=== PATIENT | female | born 1950 | race Caucasian/White ===

== ENCOUNTER 2021-04-08 12:30 | Inpatient (IN) | payer MEDICARE, OTHER, BC ==
[~2021-04-08] VITALS: Ht 154.9 cm; Wt 70.0 kg
[2021-04-08] MEDS ORDERED: NS 1,000 ML IV ONE ×2 (14:10→15:20)
[2021-04-08 14:37] LABS: BASO % 0.2 % (0.0-1.0); EOS % 0.3 % (0.0-3.0); HEMATOCRIT 31.5 % (36.0-47.0); HEMOGLOBIN 9.6 g/dl (12.0-15.5); LYMPH # 0.9 10^3/uL (1.5-5.0); LYMPH % 6.2 % (24.0-44.0); MEAN CORPUSCULAR HEMOGLOBIN 24.5 pg (27.0-33.0); MEAN CORPUSCULAR HGB CONC 30.5 g/dl (32.0-36.5); MEAN CORPUSCULAR VOLUME 80.4 fl (80.0-96.0); MONO # 1.7 10^3/uL (0.0-0.8); NEUTROPHILS # 11.3 10^3/uL (1.5-8.5); NEUTROPHILS % 80.7 % (36.0-66.0); PLATELET COUNT, AUTOMATED 371 10^3/uL (150-450); RED BLOOD COUNT 3.92 10^6/uL (4.00-5.40)
[2021-04-08 15:11] LABS: ERYTHROCYTE SEDIMENTATION RATE 79 mm/hr (0-30)
[2021-04-08 15:33] LABS: ALBUMIN 2.8 GM/DL (3.2-5.2); ALT/SGPT 27 U/L (12-78); BILIRUBIN,TOTAL 1.2 MG/DL (0.2-1.0); BLOOD UREA NITROGEN 66 MG/DL (7-18); C REACTIVE PROTEIN QUANTITATIV 6.92 MG/DL (0.00-0.30); CALCIUM LEVEL 10.2 MG/DL (8.8-10.2); CARBON DIOXIDE LEVEL 14 MEQ/L (21-32); CHLORIDE LEVEL 99 MEQ/L (98-107); CREATININE FOR GFR 5.27 MG/DL (0.55-1.30); GLOMERULAR FILTRATION RATE 8.5 (>39); GLUCOSE, FASTING 221 MG/DL (70-100); LIPASE 825 U/L (73-393); POTASSIUM SERUM 6.8 MEQ/L (3.5-5.1); SODIUM LEVEL 129 MEQ/L (136-145); TOTAL PROTEIN 6.9 GM/DL (6.4-8.2)
[2021-04-08] MEDS ORDERED: PIPERACILLIN/TAZOBACTAM SOD 4.5 GM in D5W MINI-BAG PLUS 50 ML IV ONE (16:05)
[2021-04-08 16:17] LABS: CK-MB VALUE MASS 29.2 NG/ML (<3.6); CPK CREATINE PHOSPHOKINASE 108 U/L (26-192); MB/CK RELATIVE INDEX 27.04 (< OR =4); NT-PRO BNP 1021 PG/ML (<125); TROPONIN I < 0.02 NG/ML (< 0.10)
[2021-04-08 16:25] LABS: AMYLASE 71 U/L (25-115)
[2021-04-08] MEDS ORDERED: ONDANSETRON 4MG/2ML VIAL IV ONE ×2 (16:30→18:00)
[2021-04-08 16:36] LABS: ABG BASE EXCESS -15.8 (-2.0-2.0); ABG HCO3 9.8 MEQ/L (22.0-26.0)
[2021-04-08 16:37] LABS: ABG O2 SATURATION 96.7 % (95.0-99.0); ABG PARTIAL PRESSURE CO2 23.4 mmHg (35.0-45.0); ABG PARTIAL PRESSURE O2 100.5 mmHg (75.0-100.0); ABG STANDARD HCO3 12.2 MEQ/L (22.0-26.0); ABG TOTAL CO2 10.6 MEQ/L (23.0-31.0)
[2021-04-08 16:39] LABS: ABG pH (ARTERIAL) 7.242 UNITS (7.350-7.450)
--- NOTE | 2021-04-08 16:51 | REP ---
INDICATION: abdominal pain/hyperactive bowel. COMPARISON: None. TECHNIQUE: Imaging protocol: Computed tomography of the abdomen and pelvis without IV contrast. Contiguous 3 mm thick axial projection images were obtained through the abdomen and pelvis. 2D sagittal and coronal reconstructions were performed. Radiation optimization: All CT scans at this facility use at least one of these dose optimization techniques: automated exposure control; mA and/or kV adjustment per patient size (includes targeted exams where dose is matched to clinical indication); or iterative reconstruction. FINDINGS: Heart and lung bases: There is linear scarring in the inferior segment of the lingula and the anteromedial basal segment of the lower lobe of the left lung. There are no pleural effusions. The heart size is normal. There is no pericardial effusion. There is calcific vascular disease of the thoracic aorta and coronary arteries. Liver: The liver has a lobulated margin, suggestive of cirrhosis. The hepatic parenchyma has a heterogeneous density which may indicate regenerating nodules however multifocal hepatocellular carcinoma or metastatic disease is not excluded. Gallbladder: There are multiple small gallstones. Spleen: Normal unenhanced appearance. Pancreas: Normal unenhanced appearance. Adrenal glands: There is thickening of the limbs of the adrenal glands consistent with hyperplasia. Kidneys/bladder: There is a 6 mm stone in the lower pole calyx of the right kidney. There is a 3 mm stone in the lower pole calyx of the right kidney. The urinary bladder has a normal unenhanced appearance. Pelvic structures: The uterus is surgically absent. The ovaries are not identified. There is free fluid in the pelvis. There is bilateral common internal and external iliac lymphadenopathy. There is no inguinal lymphadenopathy. GI tract: There are scattered colonic diverticuli without evidence of acute inflammation. The appendix is not demonstrated. Abdominal wall and mesentery: There is retrocrural, upper abdominal, retroperitoneal and mesenteric lymphadenopathy. There is fluid in the right perihepatic space and both pericolic gutters. There is thickening of the anterior and posterior pararenal fascia and the lateral conal fascia, bilaterally. Abdominal aorta and vascular structures: There is calcific vascular disease of the abdominal aorta. Bony structures: There is mild multilevel degenerative disc disease of the lower thoracic and lumbar spine. There are large Schmorl's nodes in the inferior endplate of T12 and the superior endplate of L5. The SI joints and hips are unremarkable. IMPRESSION: 1. There is extensive intra and extra abdominal lymphadenopathy consistent with lymphoma. 2. There is moderate ascites. 3. The liver has a lobulated margin suggesting cirrhosis. There is heterogeneous density of the liver which may indicate regenerating nodules but primary carcinoma or metastatic disease cannot be excluded. 4. Cholelithiasis. 5. Other findings as noted. <Electronically signed by Elmer Carpenter > 04/08/21 1974
[2021-04-08 16:56] LABS: INR 2.29; PROTHROMBIN TIME 25.6 SECONDS (12.7-14.5)
[2021-04-08 16:57] LABS: PARTIAL THROMBOPLASTIN TIME 65.1 SECONDS (25.9-37.0)
[2021-04-08] MEDS ORDERED: DEXTROSE 50% 50 ML SYRINGE IV STA (17:11)
[2021-04-08] MEDS ORDERED: HumuLIN R (REGULAR) INSULIN (NovoLIN R) **100U/ML** PER UNIT IV STA (17:11)
[2021-04-08] MEDS ORDERED: ALBUTEROL SULFATE 2.5 MG/0.5 ML INH NEB SOLN NEB STA (17:11)
[2021-04-08] MEDS ORDERED: SOD POLYSTYRENE SULFONATE SUSP 15 GM/60 ML UD PO STA (17:11)
[2021-04-08] MEDS ORDERED: CALCIUM GLUCONATE 1,000 MG in D5W MINI-BAG PLUS 100 ML IV ONE (17:15)
[2021-04-08] MEDS ORDERED: FURO40TA2 PO (17:33)
[2021-04-08] MEDS ORDERED: MYCO500T PO (17:33)
[2021-04-08] MEDS ORDERED: LEVE500T88 PO (17:33)
[2021-04-08] MEDS ORDERED: LOSA25TA14 PO (17:33)
[2021-04-08] MEDS ORDERED: GLIM1TAB4 PO (17:33)
[2021-04-08] MEDS ORDERED: ATOR80TA59 PO (17:33)
[2021-04-08] MEDS ORDERED: METO1TAB7 PO (17:33)
[2021-04-08] MEDS ORDERED: LANTINJ4 SC (17:33)
[2021-04-08] MEDS ORDERED: DULA3PEN SC (17:33)
[2021-04-08] MEDS ORDERED: OMEP-218 PO (17:33)
[2021-04-08] MEDS ORDERED: METF10004 PO (17:33)
[2021-04-08] MEDS ORDERED: ESTR10TA VG (17:33)
--- NOTE | 2021-04-08 17:34 | ECGEPIP ---
[facility] - ED Test Date: 2021-04-08 Pat Name: NARDA HURTADO Department: Room: - Gender: Female Male Impersonator: CHARI : 1950 Requested By: DREA Hull PA-C Order Number: [id number] Reading MD: Yunior Valerio Measurements Intervals [place] Rate: 88 P: 67 LA: 154 QRS: -18 QRSD: 66 T: 61 QT: 344 QTc: 416 Interpretive Statements Normal sinus rhythm Low voltage QRS throughout Possible Inferior infarct , age undetermined Nonspecific T wave abnormality Comparison tracing not on file Electronically Signed on 04-08-2021 17:34:18 EDT by Yunior Valerio
[2021-04-08 18:01] LABS: RSV AMPLIFICATION NEGATIVE (NEGATIVE)
--- NOTE | 2021-04-08 18:10 | REP ---
INDICATION: hx CHF. COMPARISON: None. TECHNIQUE: Upright PA and lateral chest images were obtained. FINDINGS: There are surgical clips within the lingula consistent with biopsy. The lungs are otherwise clear. There are no pleural effusions. The heart size is normal. There is no calcific vascular disease of the thoracic aorta. The upper abdominal bowel gas pattern is normal. There is calcific vascular disease of the left carotid bifurcation. There are no significant bony abnormalities. IMPRESSION: 1. No evidence of acute cardiopulmonary pathology. 2. Other findings as noted. <Electronically signed by Elmer Carpenter > 04/08/21 [id number]
[2021-04-08] MEDS ORDERED: SLOW142T5 PO (18:34)
[2021-04-08] MEDS ORDERED: ASPI81CH33 PO (18:49)
[2021-04-08] MEDS ORDERED: GLUCAGON INJ 1MG VIAL SC PRN (18:50)
[2021-04-08] MEDS ORDERED: ACETAMINOPHEN TAB 650MG DOSE (2X325MG) PO PRN (18:50)
[2021-04-08] MEDS ORDERED: NS 1,000 ML IV SCH (18:50)
[2021-04-08] MEDS ORDERED: GLUCOSE 4GM CHEW TABLET PO PRN (18:50)
[2021-04-08] MEDS ORDERED: DEXTROSE 50% 50 ML SYRINGE IV PRN (18:50)
[2021-04-08] MEDS ORDERED: HOME MED LIST COMPLETE! XX SCH (18:55)
--- NOTE | 2021-04-08 19:29 | REP ---
INDICATION: elevated liver enzymes, HERNANDEZ, hyperkalemia. COMPARISON: None. TECHNIQUE: Multiple ultrasound images of the abdomen were obtained in multiple projections. FINDINGS: The liver is enlarged, measuring 20.2 cm in vertical dimension in the midclavicular line and is coarsened in echotexture and has a lobulated margin. There is mild splenomegaly with the spleen measuring 12.8 cm in pole to pole length. The gallbladder is contracted and contains stones and sludge. The right kidney measures 11.3 x 5.1 x 4.8 cm. There is a benign cortical cyst in the interpolar region of the right kidney. There is an 8 mm stone in a lower pole calyx of the right kidney. The left kidney measures 12.0 x 4.9 x 4.6 cm. There is a benign cortical cyst in the interpolar region of the left kidney. Limited imaging of the pancreas is unremarkable. There is calcified plaque in the abdominal aorta. IMPRESSION: 1. Cholelithiasis with chronic cholecystitis. 2. Hepatomegaly with a lobulated margin suggesting cirrhosis. 3. Benign cortical cysts in both kidneys. 4. Nonobstructing stone in the right kidney. 5. Calcific vascular disease of the abdominal aorta. <Electronically signed by Elmer Carpenter > 04/08/211924
--- NOTE | 2021-04-08 19:53 | HPEPDOC ---
[facility] Medical History & Physical Date of Admission Apr 08, 2021 Date of Service: Apr 08, 2021 Attending Physician: JOSEPHINE DANIEL MD History and Physical CHIEF COMPLAINT: Abdominal pain HISTORY OF PRESENT ILLNESS: 70 yo W with a history of remote bladder CA s/p resection x 2 after recurrence in 2019, hx of pericarditis x 2 s/p pericardial window so what started on cellcept? unclear if she carries a diagnosis of autoimmune disorder, HTN, HLD, IDDM, depression, active smoker, who developed abdominal and generalized weakness that began 3 weeks and progressive got worse. She feels weak, has subjective sweats without documented fevers, is mildly short of breath but no cough, congestion or rhinorrhea, has had poor PO, drinking mostly Pedialyte and has diarrhea but could not quantify for me, as well as 2 episodes of emesis. In the ED she is hemodynamically stable, afebrile, and studies were notable for WBC 14, hgb 9.6, platelets 371, Na 129, K 6.8, Cr 2.5, AST 94, ALT 27, Tbili 1.2, Dbili 1, alk phos 967m UA with sterile pyuria with TNTC WBCs and 46 RBCs with no bacteria or nitrites, ESR was 79, lipase 825, Ca 10, proBNP 1021, troponin <0.02. She had a CT A/P without contrast that revealed extensive intra and extraabdominal lymphadenopathy, moderate ascites, cirrhotic liver with either regenerative nodules vs. masses (either primary or metastatic) and non- obstructive kidney stones. The ED also ordered for a gallbladder US, renal US that were pending at the time of my evaluation. While in the ED, she was given 1.5L NS, calcium gluconate, insulin/dextrose and Kayexalate for hyperK, pip/tazo after UCx and BCx were drawn empirically. She is now getting admitted to [facility] for HyperK, HERNANDEZ, potential sepsis and newly found malignancy possibly lymphoma vs. not yet determined metastatic malignancy. PAST MEDICAL HISTORY: per HPI PAST SURGICAL HISTORY: Pericardial window Cystoscopy with bladder tumor removal Hysterectomy SOCIAL HISTORY: Current smoker Rare alcohol No illicit drug use FAMILY HISTORY: Father: at 84 from a cancer Mother: of old age at 102 ALLERGIES: Please see below. REVIEW OF SYSTEMS: 10 point ROS was completed and was negative EXCEPT for the elements noted in the HPI. HOME MEDICATIONS: Please see below. PHYSICAL EXAMINATION: VITAL SIGNS: see below GENERAL APPEARANCE: Ill appearing, NAD. HEENT: NCAT, EOMI, dry MM. NECK: I did not appreciate nestor lymphadenopathy in the supraclavicular nodes, submandibular or submental nodes CARDIOVASCULAR: RRR, systolic murmur LUNGS: CTAB, no wheezing or rales ABDOMEN: tender throughout but most tender in RUQ and RLQ. No rebound or involuntary guarding EXTREMITIES: WWP, no LE edema, NEUROLOGICAL: CN3-12 intact, clear speech, grossly nonfocal PSYCHIATRIC: AOx3 LABORATORY DATA and IMAGING: as noted above MICROBIOLOGY: Please see below. ASSESSMENT: 70 yo W with a history of remote bladder CA s/p resection x 2 after recurrence in 2019, hx of pericarditis x 2 s/p pericardial window so what started on cellcept? unclear if she carries a diagnosis of autoimmune disorder, HTN, HLD, IDDM, depression, active smoker, who developed abdominal and generalized weakness with V/D and poor PO who is now being admitted for HyperK, HERNANDEZ, potential sepsis and newly found malignancy possibly lymphoma vs. not yet determined metastatic malignancy. PLAN: HERNANDEZ: likely prerenal i/s/o V/D/poor PO while on ARB, cellcept, metformin, loop diuretic -Hold ARB, cellcept, metformin, loop diuretic -s/p 1.5L in the ED, continue NS at 100cc/hr -No obstructive pathology noted on imaging -nephrology consulted -check urine Na, Urine urea Hyperkalemia i/s/o HERNANDEZ with dehydration and taking mostly Pedialyte and no water per patient report -s/p 1.5L NS, calcium gluconate, insulin/dextrose and Kayexalate in the ED -NS at 100cc/hr -telemetry -will check Mag -nephrology consulted Hyponatremia: likely hypovolemic hyponatremia i/s/o dehydration -s/p 1.5L NS -continue NS at 100cc/hr -check urine Na and serum osmoles Extensive abdominal lymphadenopathy and potential liver masses? -Most likely malignancy possibly lymphoma vs. not yet determined metastatic malignancy, called Dr. Patrick, will see her tomorrow, to consult IR for biopsy -will order CT chest -will likely require more imaging that may include brain, will await discussion with oncology Leukocytosis and reported subjective fevers: c/f sepsis -Continue empiric zosyn -f/u UCx, BCx -check CT chest -CT A/P as above -f/u GI panel -respiratory panel was negative Elevated lipase w/ possible pancreatitis: -with extensive disease noted in abdomen, will start empiric zosyn and fluids while pending onc workup Transaminitis: likely 2/2 infiltration of disease with imaging showing possible masses vs. cirrhosis -monitor daily CMP HTN: -will continue metop, hold ARB HLD: -continue lipitor IDDM: -Consistent carb diet -FSBG AC/HS -SSI AC/HS -hypoglycemia protocol -continue home long acting insulin DVT ppx: lovenox Vital Signs Vital Signs Date Time Temp Pulse Resp B/P (MAP) Pulse Ox O2 Delivery O2 Flow Rate FiO2 04/08/21 18:30 99 18 133/55 (81) 100 Room Air 04/08/21 12:30 97.7 Laboratory Data Labs 24H Laboratory Tests 2 04/08/21 14:07: Immature Granulocyte % (Auto) 0.6, Neutrophils (%) (Auto) 80.7H, Lymphocytes (%) (Auto) 6.2L, Monocytes (%) (Auto) 12.0H, Eosinophils (%) (Auto) 0.3, Basophils (%) (Auto) 0.2, Neutrophils # (Auto) 11.3H, Lymphocytes # (Auto) 0.9L, Monocytes # (Auto) 1.7H, Eosinophils # (Auto) 0.0, Basophils # (Auto) 0.0, Nucleated Red Blood Cells % (auto) 0.0, Erythrocyte Sedimentation Rate 79H, Anion Gap 16, Glomerular Filtration Rate 8.5L, Lactic Acid Level 2.5*H, Calcium Level 10.2, Total Bilirubin 1.2H, Direct Bilirubin 1.0H, Aspartate Amino Transf (AST/SGOT) 94H, Alanine Aminotransferase (ALT/SGPT) 27, Alkaline Phosphatase 967H, Total Creatine Kinase 108, Creatine Kinase MB 29.2H, Creatine Kinase MB Relative Index 27.04H, Troponin I < 0.02, C-Reactive Protein, Quantitative 6.92H, RK-Fko-O-Type Natriuretic Peptide 1021H, Total Protein 6.9, Albumin 2.8L, Albumin/Globulin Ratio 0.7L, Amylase Level 71, Lipase 825H 04/08/21 14:43: POC Glucose (Misc Panel) 223H, POC Sodium (Misc Panel) 130L, POC Potassium (Misc Panel) 6.6*H, POC Chloride (Misc Panel) 104, POC Total CO2 (Misc Panel) 15.0L, POC Blood Urea Nitrogen (Misc Panel 61H, POC Ionized Calcium (Misc Panel) 5.4H, POC Creatinine (Misc Panel) 5.8H, POC Hematocrit (Misc Panel) 39.0 04/08/21 16:12: Urine Color YELLOW, Urine Appearance CLOUDYH, Urine pH 5.0, Urine Specific [place] 1.011, Urine Protein 3+H, Urine Glucose (UA) NEGATIVE, Urine Ketones NEGATIVE, Urine Blood 2+H, Urine Nitrite NEGATIVE, Urine Bilirubin NEGATIVE, Urine Urobilinogen 0.2, Urine Leukocyte Esterase 2+H, Urine WBC (Auto) TNTCH, Urine RBC (Auto) 46H, Urine Hyaline Casts (Auto) 14, Urine Bacteria (Auto) NEGA TIVE, Urine Squamous Epithelial Cells 6, Urine Transitional Epithelial Cells 1, Urine Mucus (Auto) SMALL, Urine Sperm (Auto) 04/08/21 16:24: Blood Gas Bicarbonate Standard 12.2L, Arterial Blood pH 7.242*L, Arterial Blood Partial Pressure CO2 23.4L, Arterial Blood Partial Pressure O2 100.5H, Arterial Blood Total CO2 10.6L, Arterial Blood HCO3 9.8L, Arterial Blood Base Excess - 15.8L, Arterial Blood Oxygen Saturation 96.7 04/08/21 16:26: Prothrombin Time 25.6H, Prothromb Time International Ratio 2.29, Activated Partial Thromboplast Time 65.1H, Coronavirus (COVID-19)(PCR) NEGATIVE, Influenza Type A (RT-PCR) NEGATIVE, Influenza Type B (RT-PCR) NEGATIVE, Respiratory Syncytial Virus (PCR) NEGATIVE CBC/BMP Laboratory Tests 04/08/21 14:07 Microbiology Microbiology 04/08/21 Blood Culture, Received Pending 04/08/21 Gastrointestinal Tract Panel (PCR) - Final, Complete 04/08/21 Blood Culture, Received Pending 04/08/21 Urine Culture, Received Pending Home Medications Scheduled Aspirin (Aspirin) 81 Mg Tab.chew, 81 MG PO QHS Atorvastatin Calcium (Atorvastatin Calcium) 80 Mg Tablet, 80 MG PO QHS Dulaglutide (Trulicity) 3 Mg/0.5 Ml Pen.injctr, 3 MG SC 1XWK WEDNESDAY EVENING Ferrous Sulfate (Slow Fe) 142 Mg Tablet.er, 142 MG PO Q2D Furosemide (Furosemide) 40 Mg Tablet, 40 MG PO DAILY Glimepiride (Glimepiride) 1 Mg Tablet, 1 MG PO DAILY Insulin Glargine,Hum.rec.anlog (Lantus Solostar) 100 Unit/1 Ml Insuln.pen, 60 UNITS SC QHS Levetiracetam (Levetiracetam ER) 500 Mg Tab.er.24h, 500 MG PO BID Losartan Potassium (Losartan Potassium) 25 Mg Tablet, 25 MG PO QHS Metformin HCl (Metformin HCl) 1,000 Mg Tablet, 1,000 MG PO BID Metoprolol Succinate (Metoprolol Succinate) 50 Mg Tab.er.24h, 50 MG PO DAILY Mycophenolate Mofetil (Mycophenolate Mofetil) 500 Mg Tablet, 500 MG PO BID Omeprazole (Omeprazole) 20 Mg Capsule.dr, 20 MG PO DAILY Allergies Coded Allergies: No Known Allergies (Unverified , 04/08/21) A-FIB/CHADSVASC A-FIB History Current/History of A-Fib/PAF?: No Current PO Anticoag Therapy: No Age/Risk Factor Scoring CHADSVASC: CHADSVASC Response (Comments) Value Age Risk Factor Age 65-74 years old 1 Gender Risk Factor Female 1 Hx of CHF Yes 1 Hx of HTN Yes 1 Hx of Stroke/TIA/or VTE No 0 Hx of Diabetes Yes 1 Hx of Vascular Disease No 0 Total 5 Treatment Treatment ordered: NONE Reason Anticoagulant not given: Not indicated/[id number] JOSEPHINE DANIEL MD Apr 08, 2021 19:51
[2021-04-08 20:45] LABS: CALCIUM LEVEL 9.9 MG/DL (8.8-10.2); GLOMERULAR FILTRATION RATE 9.1 (>39); POTASSIUM SERUM 5.8 MEQ/L (3.5-5.1)
[2021-04-08] MEDS: HumaLOG INSULIN (NovoLOG) PER UNIT SC SCH (21:00)
[2021-04-08] MEDS: HEPARIN SOD (PORCINE) 5000UNITS/ML 1ML VIAL/SYRINGE SQ SCH (21:00)
[2021-04-08] MEDS ORDERED: ATORVASTATIN 20 MG TAB PO SCH (21:00)
--- NOTE | 2021-04-08 21:07 | REPVR ---
PROCEDURE INFORMATION: Exam: CT Chest Without Contrast; Diagnostic Exam date and time: 04/08/2021 7:46 PM Age: 70 years old Clinical indication: Other: Abdominal lymphadenopathy with metastatic disease TECHNIQUE: Imaging protocol: Diagnostic computed tomography of the chest without contrast. 3D rendering (Not supervised by radiologist): MIP and/or 3D reconstructed images were created by the technologist. Radiation optimization: All CT scans at this facility use at least one of these dose optimization techniques: automated exposure control; mA and/or kV adjustment per patient size (includes targeted exams where dose is matched to clinical indication); or iterative reconstruction. COMPARISON: CR Chest, 2 view PA, Lat 04/08/2021 4:14 PM FINDINGS: Thyroid: Enlarged right lobe of the thyroid gland with a complex nodule measuring 2.6 x 1.8 cm. Further evaluation with nonemergent ultrasound could be considered. Lungs: Mild parenchymal scarring lingular lobe. Lungs otherwise clear. Pleural spaces: Unremarkable. No pneumothorax. No pleural effusion. Heart: There is moderate atherosclerotic calcification of the coronary arteries. Aorta: There is mild atherosclerosis in the thoracic aorta. Lymph nodes: Unremarkable. No enlarged lymph nodes. Liver: Hepatomegaly with a heterogeneous texture in the liver, findings which may indicate heterogeneous fatty infiltration or infiltrative metastatic disease. Hepatomegaly. Adrenal glands: Left adrenal hyperplasia. Intraperitoneal space: Ascites. Bones/joints: The spine demonstrates mild degenerative changes. Soft tissues: Unremarkable. IMPRESSION: 1. Enlarged right lobe of the thyroid gland with a complex nodule measuring 2.6 x 1.8 cm. Further evaluation with nonemergent ultrasound could be considered. 2. No acute intrathoracic findings. COMMENTS: Consistent with the [employer]'s Incidental Findings Committee white paper (J Am Allan Radiol 2015): In patients aged 35 years and older with an incidental thyroid nodule equal to or greater than 1.[address], MRI or extrathyroidal US, further evaluation with dedicated thyroid US is recommended for patients with normal life expectancy and without comorbidities. For smaller nodules without suspicious features, no further evaluation or follow up is recommended. Electronically signed by: Miguel Thompson On 04/08/2021 21:06:21 PM
[2021-04-08 21:57] VITALS: BP 110/50
[2021-04-08] MEDS: ASPIRIN 81 MG CHEW TABLET PO SCH (22:21)
[2021-04-08] MEDS: levETIRAcetam **XR** 500 MG TABLET PO SCH (22:43)
[2021-04-08] MEDS: LEVEMIR (INSULIN DETEMIR) 1 UNITS/0.01ML SC SCH (22:43)
[2021-04-08] MEDS: PIPERACILLIN/TAZOBACTAM SOD 2.25 GM in D5W MINI-BAG PLUS 50 ML IV SCH (23:24)
[2021-04-09] VITALS (8 sets, daily range): BP systolic 92–119; BP diastolic 51–58
[2021-04-09 03:47] LABS: HEMOGLOBIN 7.9 g/dl (12.0-15.5); MEAN CORPUSCULAR HEMOGLOBIN 24.5 pg (27.0-33.0); MEAN CORPUSCULAR HGB CONC 30.4 g/dl (32.0-36.5); MEAN CORPUSCULAR VOLUME 80.5 fl (80.0-96.0); PLATELET COUNT, AUTOMATED 298 10^3/uL (150-450); RED BLOOD COUNT 3.23 10^6/uL (4.00-5.40); WHITE BLOOD COUNT 12.1 10^3/uL (4.0-10.0)
[2021-04-09 04:21] LABS: ALBUMIN 2.2 GM/DL (3.2-5.2); CALCIUM LEVEL 8.2 MG/DL (8.8-10.2); CREATININE FOR GFR 4.37 MG/DL (0.55-1.30); GLOMERULAR FILTRATION RATE 10.6 (>39); MAGNESIUM LEVEL 1.4 MG/DL (1.8-2.4); POTASSIUM SERUM 4.9 MEQ/L (3.5-5.1); TOTAL PROTEIN 5.4 GM/DL (6.4-8.2)
[2021-04-09] MEDS: PIPERACILLIN/TAZOBACTAM SOD 2.25 GM in D5W MINI-BAG PLUS 50 ML IV SCH ×3 (04:57→17:36)
[2021-04-09] MEDS: HumaLOG INSULIN (NovoLOG) PER UNIT SC SCH ×4 (07:30→20:08)
[2021-04-09] MEDS ORDERED: MAG SULF 1GM/100ML (MAG RUN) 1 GM in IV 1 EA IV ONE (08:00)
[2021-04-09] MEDS: HEPARIN SOD (PORCINE) 5000UNITS/ML 1ML VIAL/SYRINGE SQ SCH ×2 (08:34→20:09)
[2021-04-09] MEDS ORDERED: METOPROLOL SUCC (TopROL XL) 50MG **XL** TAB PO SCH (09:00)
[2021-04-09] MEDS ORDERED: ENOXAPARIN 40MG/0.4ML SYRINGE (J1650 PER 10MG) SC SCH (09:00)
[2021-04-09] MEDS ORDERED: OMEPRAZOLE 20 MG CAP PO SCH (09:00)
[2021-04-09] MEDS ORDERED: NS 1,000 ML IV SCH (09:05)
[2021-04-09 09:30] LABS: PERCENT SATURATION 6.4 % (13.2-45.0)
--- NOTE | 2021-04-09 10:50 | REP ---
INDICATION: large thyroid nodule. COMPARISON: CT chest 04/08/2021. TECHNIQUE: Real-time sonographic evaluation of thyroid performed. FINDINGS: Right lobe of the thyroid is larger than the left, right lobe measures 5.5 x 2.5 x 2.9 cm and left lobe 4.9 x 1.7 x 1.5 cm. In the right upper pole there is a 7 mm solid nodule. There is an adjacent nodule with a calcified rim measuring 8 mm. A cyst with thin septations in the mid aspect of the right lobe measures 1.4 x 0.9 x 1.6 cm. There is a complex solid nodule with small cystic components in the right lower pole 3.4 x 2.3 x 2.2 cm. In the left upper pole there is an 8 mm complex cyst and 7 mm complex cyst. In the left lower pole 2 solid nodules measure 1.2 cm and 0.8 cm. IMPRESSION: Multiple cystic and solid nodules as discussed in detail above. The dominant nodule in the right lower pole is mildly suspicious according to TI-RADS criteria and ultrasound-guided FNA is recommended. <Electronically signed by Jasiel Mckeon > 04/09/21 1047
[2021-04-09 11:17] LABS: HEPATITIS B SURFACE ANTIGEN NEGATIVE (NEGATIVE)
[2021-04-09 11:25] LABS: FOLATE 21.4 NG/ML (>5.4); PHOSPHORUS LEVEL 6.9 MG/DL (2.5-4.9); URIC ACID 14.6 MG/DL (2.6-6.0)
[2021-04-09 11:45] LABS: HEPATITIS B CORE ANTIBODY IGM NEGATIVE (NEGATIVE)
[2021-04-09 11:47] LABS: HEPATITIS A ANTIBODY IGM NEGATIVE (NEGATIVE)
--- NOTE | 2021-04-09 12:58 | CR.PDOC ---
General Date of Consultation: Apr 09, 2021 Attending Physician: ROBY PATRICK MD Consultation REASON FOR CONSULTATION/CHIEF COMPLAINT: Generalized lymphadenopathy HISTORY OF PRESENT ILLNESS: Ms. Quinn is in the hospital after developing abdominal and generalized weakness that began 3 weeks and progressive got worse. She feels weak, has subjective sweats, is mildly short of breath but no cough, congestion or rhinorrhea. She has significant pain. Diarrhea for past 3 weeks. No control on bowel movements. 8-[address] A/P without contrast that revealed extensive intra and extraabdominal lymphadenopathy, moderate ascites, cirrhotic liver with either regenerative nodules vs. masses (either primary or metastatic) and non-obstructive kidney stones. Remote bladder CA s/p resection x 2 after recurrence in 2019 and underwent RT. She was diagnosed 10 years previously. She was told it was not aggressive. The 2019 diagnoses was aggressive, as she was told. Dr. Trent treated her. She believes RT was once a week for 6-8 weeks. She follows up with him. She presented to the ER complaining her entire body has been hurting for 3 weeks. Previously she was okay. She sees Dr. Taylor yearly for arthritis. Her back was painful. She has been told that providers believe her pain is from her kidneys. She was able to preform her daily functions previous to this hospital stay. She stays mostly in bed and chair. She had pericarditis x 2 s/p pericardial window. She has been told she has an autoimmune disease. She takes cellcept. She had mammogram 10 years ago. Never had colonoscopy. PAST MEDICAL HISTORY: HTN, HLD, IDDM, depression PAST SURGICAL HISTORY: 1. Pericardial window 2. Cystoscopy with bladder tumor removal 3. Hysterectomy FAMILY HISTORY: Mother: passed at 84 from cancer SOCIAL HISTORY: Current Smoker - half pack daily, started at 17 Rare alcohol Denies illicit drug use She lives with her and has 1 grown child. 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 REVIEW OF SYSTEMS: CONSTITUTIONAL: Today she is very slow at speaking, weak and fatigued, short of breath HEENT: . CARDIOVASCULAR: . RESPIRATORY: . GENITOURINARY: . MUSCULOSKELETAL: generalized weakness, pain everywhere but mostly her back GASTROINTESTINAL: Diarrhea 8 times daily SKIN: . NEUROLOGICAL: . PSYCHIATRIC: . ENDOCRINE: . HEMATOLOGIC/LYMPHATIC: . ALLERGIC/IMMUNOLOGIC: . PHYSICAL EXAMINATION: GENERAL APPEARANCE: generalized weakness HEENT: . RESPIRATORY: short of breath CARDIOVASCULAR: . ABDOMEN: Very tender abdomen to the touch, enlarged liver, lymph nodes enlarged in abdomen only EXTREMITIES: . NEUROLOGICAL: . PSYCHIATRIC: . ASSESSMENT/PLAN: I consulted with Ms. Quinn today based on lymphadenopathy and a CT scan showing possible masses on liver. I explained she has enlarged lymph node enlargement in abdomen shown by CT. I explained the many reasons this could be. I would like her to have a liver biopsy done once she is stable. This will be done by Interventional Radiology. I will refer her to this once she is stable. Abdominal lymph nodes are enlarged. I do not have reason to believe she has a cirrhotic liver as during the physical exam her liver is enlarged and tender to the touch. Spleen was not noticeably enlarged. I am inclined to believe this could be metastatic disease to liver. I would like a liver biopsy to be done as soon as her general condition stabilizes. She understands this. I discussed this case with Dr. Breen. Patient uric acid level was found to be 15 and hyperkalemia. Patient is being treated with Kayexalate for hyperkalemia. Patient is likely having tumor lysis with rising BUN and creatinine. Patient needs to be transferred to tertiary care center for tumor lysis syndrome but for now no beds are available in other hospitals. She should be given rasburicase 6 mg IV x1. Her electrolytes and uric acid should be watched at least twice daily for close monitoring. Once patient stabilizes, at that time should be considered for further investigation with core needle biopsy of the liver or possible lymph node biopsy. Vital Signs/I&O Vital Signs Date Time Temp Pulse Resp B/P (MAP) Pulse Ox O2 Delivery O2 Flow Rate FiO2 04/09/21 08:00 96.8 95 20 92/54 (67) 97 Room Air I&O- Last 24 Hours up to 6 AM 04/09/21 06:00 Intake Total 2190 ml Output Total 450 ml Balance 1740 ml Laboratory Data Labs 24H Laboratory Tests 2 04/08/21 14:07: Immature Granulocyte % (Auto) 0.6, Neutrophils (%) (Auto) 80.7H, Lymphocytes (%) (Auto) 6.2L, Monocytes (%) (Auto) 12.0H, Eosinophils (%) (Auto) 0.3, Basophils (%) (Auto) 0.2, Neutrophils # (Auto) 11.3H, Lymphocytes # (Auto) 0.9L, Monocytes # (Auto) 1.7H, Eosinophils # (Auto) 0.0, Basophils # (Auto) 0.0, Nucleated Red Blood Cells % (auto) 0.0, Erythrocyte Sedimentation Rate 79H, Anion Gap 16, Glomerular Filtration Rate 8.5L, Lactic Acid Level 2.5*H, Calcium Level 10.2, Total Bilirubin 1.2H, Direct Bilirubin 1.0H, Aspartate Amino Transf (AST/SGOT) 94H, Alanine Aminotransferase (ALT/SGPT) 27, Alkaline Phosphatase 967H, Total Creatine Kinase 108, Creatine Kinase MB 29.2H, Creatine Kinase MB Relative Index 27.04H, Troponin I < 0.02, C-Reactive Protein, Quantitative 6.92H, GR-[id number]-Type Natriuretic Peptide 1021H, Total Protein 6.9, Albumin 2.8L, Albumin/Globulin Ratio 0.7L, Amylase Level 71, Lipase 825H, Hepatitis A IgM Antibody NEGATIVE, Hepatitis B Surface Antigen NEGATIVE, Hepatitis B Core IgM Antibody NEGATIVE, Hepatitis C Antibody Index 0.0 04/08/21 14:43: POC Glucose (Misc Panel) 223H, POC Sodium (Misc Panel) 130L, POC Potassium (Misc Panel) 6.6*H, POC Chloride (Misc Panel) 104, POC Total CO2 (Misc Panel) 15.0L, POC Blood Urea Nitrogen (Misc Panel 61H, POC Ionized Calcium (Misc Panel) 5.4H, POC Creatinine (Misc Panel) 5.8H, POC Hematocrit (Misc Panel) 39.0 04/08/21 16:12: Urine Color YELLOW, Urine Appearance CLOUDYH, Urine pH 5.0, Urine Specific [place] 1.011, Urine Protein 3+H, Urine Glucose (UA) NEGATIVE, Urine Ketones NEGATIVE, Urine Blood 2+H, Urine Nitrite NEGATIVE, Urine Bilirubin NEGATIVE, Urine Urobilinogen 0.2, Urine Leukocyte Esterase 2+H, Urine WBC (Auto) TNTCH, Urine RBC (Auto) 46H, Urine Hyaline Casts (Auto) 14, Urine Bacteria (Auto) NEGATIVE, Urine Squamous Epithelial Cells 6, Urine Transitional Epithelial Cells 1, Urine Mucus (Auto) SMALL, Urine Sperm (Auto) 04/08/21 16:24: Blood Gas Bicarbonate Standard 12.2L, Arterial Blood pH 7.242*L, Arterial Blood Partial Pressure CO2 23.4L, Arterial Blood Partial Pressure O2 100.5H, Arterial Blood Total CO2 10.6L, Arterial Blood HCO3 9.8L, Arterial Blood Base Excess - 15.8L, Arterial Blood Oxygen Saturation 96.7 04/08/21 16:26: Prothrombin Time 25.6H, Prothromb Time International Ratio 2.29, Activated Parti al Thromboplast Time 65.1H, Coronavirus (COVID-19)(PCR) NEGATIVE, Influenza Type A (RT-PCR) NEGATIVE, Influenza Type B (RT-PCR) NEGATIVE, Respiratory Syncytial Virus (PCR) NEGATIVE 04/08/21 20:17: Lactic Acid Followup at 4 Hours 4.3*H 04/08/21 20:18: Anion Gap 19H, Glomerular Filtration Rate 9.1L, Calcium Level 9.9, Procalcitonin 78.05 04/08/21 22:20: Bedside Glucose (Misc Panel) 178H 04/09/21 03:16: Nucleated Red Blood Cells % (auto) 0.0, Anion Gap 16, Glomerular Filtration Rate 10.6L, Calcium Level 8.2#L, Magnesium Level 1.4L, Total Bilirubin 1.0, Aspartate Amino Transf (AST/SGOT) 74H, Alanine Aminotransferase (ALT/SGPT) 21, Alkaline Phosphatase 820H, Total Protein 5.4#L, Albumin 2.2#L, Albumin/Globulin Ratio 0.7L 04/09/21 08:26: Reticulocyte # (auto) 41.5, Percent Reticulocyte Count 1.0, Reticulocyte Hemoglobin Equivalent 26.5, Lactic Acid Level 2.0, Uric Acid 14.6H, Phosphorus Level 6.9H, Iron Level 16L, Total Iron Binding Capacity 250, Transferrin % Saturation 6.4L, Ferritin 99, Vitamin B12 Level 362, Folate 21.4 04/09/21 11:53: Bedside Glucose (Misc Panel) 107 CBC/BMP Laboratory Tests 04/08/21 14:07 04/08/21 20:18 04/08/21 22:39 04/09/21 03:16 Microbiology Microbiology 04/08/21 Blood Culture, Received Pending 04/08/21 Gastrointestinal Tract Panel (PCR) - Final, Complete 04/08/21 Blood Culture, Received Pending 04/08/21 Urine Culture, Received Pending Allergies Coded Allergies: No Known Allergies (Unverified , 04/08/21) Home Medications Scheduled Aspirin (Aspirin) 81 Mg Tab.chew, 81 MG PO QHS, (Reported) Atorvastatin Calcium (Atorvastatin Calcium) 80 Mg Tablet, 80 MG PO QHS, (Reported) Dulaglutide (Trulicity) 3 Mg/0.5 Ml Pen.injctr, 3 MG SC 1XWK, (Reported) FRIDAY EVENING Ferrous Sulfate (Slow Fe) 142 Mg Tablet.er, 142 MG PO Q2D, (Reported) Furosemide (Furosemide) 40 Mg Tablet, 40 MG PO DAILY, (Reported) Glimepiride (Glimepiride) 1 Mg Tablet, 1 MG PO DAILY, (Reported) Insulin Glargine,Hum.rec.anlog (Lantus Solostar) 100 Unit/1 Ml Insuln.pen, 60 UNITS SC QHS, (Reported) Levetiracetam (Levetiracetam ER) 500 Mg Tab.er.24h, 500 MG PO BID, (Reported) Losartan Potassium (Losartan Potassium) 25 Mg Tablet, 25 MG PO QHS, (Reported) Metformin HCl (Metformin HCl) 1,000 Mg Tablet, 1,000 MG PO BID, (Reported) Metoprolol Succinate (Metoprolol Succinate) 50 Mg Tab.er.24h, 50 MG PO DAILY, (Reported) Mycophenolate Mofetil (Mycophenolate Mofetil) 500 Mg Tablet, 500 MG PO BID, (Reported) Omeprazole (Omeprazole) 20 Mg Capsule., 20 MG PO DAILY, (Reported) Scribe Attestation I personally Scribed for Dr Patrick on 04/09/21 at 12:58 . Electronically Submitted by Edmar Bustillos Grayce Apr 09, 2021 12:57 GRIFFIN,ROBY Sousa MD Apr 09, 2021 17:09
[2021-04-09] MEDS: levETIRAcetam **XR** 500 MG TABLET PO SCH ×2 (13:32→20:07)
[2021-04-09] MEDS: allopurinoL 100 MG TAB PO SCH ×2 (13:32→20:09)
--- NOTE | 2021-04-09 14:38 | IPNPDOC ---
Text Note Date of Service The patient was seen on 04/09/21. NOTE SUBJECTIVE: No overnight acute complaints OBJECTIVE: VITAL SIGNS: see below GENERAL APPEARANCE: Ill appearing, NAD. HEENT: NCAT, EOMI, MMM. NECK: I did not appreciate nestor lymphadenopathy in the supraclavicular nodes, submandibular or submental nodes CARDIOVASCULAR: RRR, systolic murmur LUNGS: CTAB, no wheezing or rales ABDOMEN: tender throughout but most tender in RUQ and RLQ with hepatomegaly. No rebound or involuntary guarding EXTREMITIES: WWP, no LE edema, NEUROLOGICAL: CN3-12 intact, clear speech, grossly nonfocal PSYCHIATRIC: AOx3 LABORATORY DATA: WBC12.1 Hgb 7.9 platelets 298 na 138 K 4.9 BUN 55 Cr 4.37 mag 1.4 AST 74 ALT 21 Alk phos 820 IMAGIN/19 CT chest w/o contrast: Thyroid: Enlarged right lobe of the thyroid gland with a complex nodule measuring 2.6 x 1.8 cm. Further evaluation with nonemergent ultrasound could be considered. Lungs: Mild parenchymal scarring lingular lobe. Lungs otherwise clear. Pleural spaces: Unremarkable. No pneumothorax. No pleural effusion. Heart: There is moderate atherosclerotic calcification of the coronary arteries. Aorta: There is mild atherosclerosis in the thoracic aorta. Lymph nodes: Unremarkable. No enlarged lymph nodes. Liver: Hepatomegaly with a heterogeneous texture in the liver, findings which may indicate heterogeneous fatty infiltration or infiltrative metastatic disease. Hepatomegaly. Adrenal glands: Left adrenal hyperplasia. Intraperitoneal space: Ascites. Bones/joints: The spine demonstrates mild degenerative changes. Soft tissues: Unremarkable. IMPRESSION: 1. Enlarged right lobe of the thyroid gland with a complex nodule measuring 2.6 x 1.8 cm. Further evaluation with nonemergent ultrasound could be considered. 2. No acute intrathoracic findings. COMMENTS: Consistent with the [employer]'s Incidental Findings Committee white paper (J Am Allan Radiol 2015): In patients aged 35 years and older with an incidental thyroid nodule equal to or greater than 1.[address], MRI or extrathyroidal US, further evaluation with dedicated thyroid US is recommended for patients with normal life expectancy and without comorbidities. For smaller nodules without suspicious features, no further evaluation or follow up is recommended. 04/08 CT A/P w/o contrast: Heart and lung bases: There is linear scarring in the inferior segment of the lingula and the anteromedial basal segment of the lower lobe of the left lung. There are no pleural effusions. The heart size is normal. There is no pericardial effusion. There is calcific vascular disease of the thoracic aorta and coronary arteries. Liver: The liver has a lobulated margin, suggestive of cirrhosis. The hepatic parenchyma has a heterogeneous density which may indicate regenerating nodules however multifocal hepatocellular carcinoma or metastatic disease is not excluded. Gallbladder: There are multiple small gallstones. Spleen: Normal unenhanced appearance. Pancreas: Normal unenhanced appearance. Adrenal glands: There is thickening of the limbs of the adrenal glands consistent with hyperplasia. Kidneys/bladder: There is a 6 mm stone in the lower pole calyx of the right kidney. There is a 3 mm stone in the lower pole calyx of the right kidney. The urinary bladder has a normal unenhanced appearance. Pelvic structures: The uterus is surgically absent. The ovaries are not identified. There is free fluid in the pelvis. There is bilateral common internal and e xternal iliac lymphadenopathy. There is no inguinal lymphadenopathy. GI tract: There are scattered colonic diverticuli without evidence of acute inflammation. The appendix is not demonstrated. Abdominal wall and mesentery: There is retrocrural, upper abdominal, retroperitoneal and mesenteric lymphadenopathy. There is fluid in the right perihepatic space and both pericolic gutters. There is thickening of the anterior and posterior pararenal fascia and the lateral conal fascia, bilaterally. Abdominal aorta and vascular structures: There is calcific vascular disease of the abdominal aorta. Bony structures: There is mild multilevel degenerative disc disease of the lower thoracic and lumbar spine. There are large Schmorl's nodes in the inferior endplate of T12 and the superior endplate of L5. The SI joints and hips are unremarkable. IMPRESSION: 1. There is extensive intra and extra abdominal lymphadenopathy consistent with lymphoma. 2. There is moderate ascites. 3. The liver has a lobulated margin suggesting cirrhosis. There is heterogeneous density of the liver which may indicate regenerating nodules but primary carcinoma or metastatic disease cannot be excluded. 4. Cholelithiasis. 5. Other findings as noted. Abdominal US: The liver is enlarged, measuring 20.2 cm in vertical dimension in the midclavicular line and is coarsened in echotexture and has a lobulated margin. There is mild splenomegaly with the spleen measuring 12.8 cm in pole to pole length. The gallbladder is contracted and contains stones and sludge. The right kidney measures 11.3 x 5.1 x 4.8 cm. There is a benign cortical cyst in the interpolar region of the right kidney. There is an 8 mm stone in a lower pole calyx of the right kidney. The left kidney measures 12.0 x 4.9 x 4.6 cm. There is a benign cortical cyst in the interpolar region of the left kidney. Limited imaging of the pancreas is unremarkable. There is calcified plaque in the abdominal aorta. IMPRESSION: 1. Cholelithiasis with chronic cholecystitis. 2. Hepatomegaly with a lobulated margin suggesting cirrhosis. 3. Benign cortical cysts in both kidneys. 4. Nonobstructing stone in the right kidney. 5. Calcific vascular disease of the abdominal aorta. 04/08 CXR: There are surgical clips within the lingula consistent with biopsy. The lungs are otherwise clear. There are no pleural effusions. The heart size is normal. There is no calcific vascular disease of the thoracic aorta. The upper abdominal bowel gas pattern is normal. There is calcific vascular disease of the left carotid bifurcation. There are no significant bony abnormalities. IMPRESSION: 1. No evidence of acute cardiopulmonary pathology. 2. Other findings as noted. MICROBIOLOGY: Please see below. ASSESSMENT: 70 yo W with a history of remote bladder CA s/p resection x 2 after recurrence in 2019, hx of pericarditis x 2 s/p pericardial window so what started on cellcept? unclear if she carries a diagnosis of autoimmune disorder, HTN, HLD, IDDM, depression, active smoker, who developed abdominal and generalized weaknes s with V/D and poor PO who was admitted for HyperK, HERNANDEZ, potential sepsis and newly found malignancy possibly lymphoma vs. not yet determined metastatic malignancy. PLAN: HERNANDEZ: likely prerenal i/s/o V/D/poor PO while on ARB, cellcept, metformin, loop diuretic: improving -Continue holding ARB, cellcept, metformin, loop diuretic -s/p 2.5L NS, receiving 2u of pRBCs this AM for anemia and then will likely resume some IVF, but after discussion with nephrology -No obstructive pathology noted on imaging -nephrology consulted -f/u urine Na, Urine urea -will check tumor lysis labs given burden of lymphadenopathy with HERNANDEZ and hyperK Hyperkalemia i/s/o HERNANDEZ with dehydration and taking mostly Pedialyte and no water per patient report: resolved -s/p IVF, calcium gluconate, insulin/dextrose and Kayexalate in the ED -telemetry -nephrology consulted Hyponatremia: likely hypovolemic hyponatremia i/s/o dehydration, resolved -s/p 2.5L NS -f/u urine Na and serum osmoles Hypomagnesemia: -replete PRN Extensive abdominal lymphadenopathy and potential liver masses 2/2 infiltrative mets? -Most likely malignancy possibly lymphoma vs. not yet determined metastatic malignancy, called Dr. Patrick at admission, to consult IR for biopsy after discussion -CT chest without noted mass, lesions, pleural disease or effusions. Did note large thyroid nodule -will likely require more imaging that may include brain, will await discussion with oncology Leukocytosis and reported subjective fevers: c/f sepsis -Continue empiric zosyn -f/u UCx, BCx -CT chest without acute pathology suggestive of infection -CT A/P as above -GI panel was negative -respiratory panel was negative Elevated lipase w/ possible pancreatitis: -with extensive disease noted in abdomen, continue empiric zosyn and fluids while pending onc workup Transaminitis: likely 2/2 infiltration of disease with imaging showing possible masses vs. cirrhosis -monitor daily CMP Anemia: -check FOBT -potentially AOCI i/s/o malignancy -check Fe, ferritin, TIBC, retic, vit B12 and folate -will give 2u pRBCs HTN: -Hold metop and ARB HLD: -continue lipitor IDDM: -Consistent carb diet -FSBG AC/HS -SSI AC/HS -hypoglycemia protocol -continue home long acting insulin History of CHF on baseline loop diuretic -Suspect HFpEF -monitor volume status DVT ppx: lovenox VS,Fishbone, I+O VS, Fishbone, I+O Laboratory Tests 04/08/21 14:07 04/08/21 20:18 04/08/21 22:39 04/09/21 03:16 Vital Signs Date Time Temp Pulse Resp B/P (MAP) Pulse Ox O2 Delivery O2 Flow Rate FiO2 04/09/21 03:54 98.4 96 16 103/53 (70) 99 Room Air I&O- Last 24 Hours up to 6 AM 04/09/21 06:00 Intake Total 2190 ml Output Total 450 ml Balance 1740 ml JOSEPHINE DANIEL MD Apr 09, 2021 07:55
[2021-04-09 14:41] LABS: ALBUMIN 2.6 GM/DL (3.2-5.2); CALCIUM LEVEL 9.6 MG/DL (8.8-10.2); CREATININE FOR GFR 5.28 MG/DL (0.55-1.30); GLOMERULAR FILTRATION RATE 8.5 (>39); PHOSPHORUS LEVEL 6.2 MG/DL (2.5-4.9); POTASSIUM SERUM 5.3 MEQ/L (3.5-5.1)
[2021-04-09] MEDS ORDERED: SODIUM BICARBONATE 75 MEQ in NS 0.45% 1,000 ML IV SCH (15:00)
[2021-04-09] MEDS ORDERED: SLF 3 ML SYR IV PRN (16:05)
[2021-04-09] MEDS ORDERED: ALLO10TA PO (19:24)
--- NOTE | 2021-04-09 19:41 | DS.PDOC ---
Discharge Summary General Date of Admission Apr 08, 2021 at 18:48 Date of Discharge 04/09/2021 Attending Physician: JOSEPHINE DANIEL MD Discharge Summary PROCEDURES PERFORMED DURING STAY: None ADMITTING DIAGNOSES: HERNANDEZ Hyperkalemia Diffuse abdominal lymphadenopathy DISCHARGE DIAGNOSES: Tumor lysis syndrome Hyperkalemia Hyperuricemia Hypercalcemia Hyperphosphatemia Acute renal failure IDDM Newly noted likely malignancy w/ extensive abdominal lymphadenopathy and infiltrative hepatic tumors with tender hepatomegaly COMPLICATIONS/CHIEF COMPLAINT: Abdominal Lymphadenopathy, Hernandez, Hyperkalemia. HISTORY OF PRESENT ILLNESS: 70 yo W with a history of remote bladder CA s/p resection x 2 after recurrence in 2019, hx of pericarditis x 2 s/p pericardial window so what started on cellcept? unclear if she carries a diagnosis of an autoimmune disorder, HTN, HLD, IDDM, depression, active smoker, who developed abdominal and generalized weakness that began 3 weeks prior to presentation and progressively got worse. She felt weak, has subjective sweats without documented fevers, was mildly short of breath but without a cough, congestion or rhinorrhea, had poor PO, drinking m ostly Pedialyte and had diarrhea but could not quantify for me, as well as 2 episodes of emesis. HOSPITAL COURSE: In the ED she was hemodynamically stable, afebrile, and studies were notable for WBC 14, hgb 9.6, platelets 371, Na 129, K 6.8, Cr 5.27 (from baseline of 1), AST 94, ALT 27, Tbili 1.2, Dbili 1, alk phos 967, UA with sterile pyuria with TNTC WBCs and 46 RBCs with no bacteria, ESR 79, lipase 825, Ca 10, proBNP 1021, troponin <0.02. She had a CT A/P without contrast that revealed extensive intra and extraabdominal lymphadenopathy, moderate ascites, cirrhotic liver with either regenerative nodules vs. masses (either primary or metastatic) and non-obstructive kidney stones. While in the ED, she was given 1.5L NS, calcium gluconate, insulin/dextrose and Kayexalate for hyperK, pip/tazo after UCx and BCx were drawn empirically and was admitted to medicine for HyperK, HERNANDEZ, potential sepsis and newly found malignancy possibly lymphoma vs. not yet determined metastatic malignancy. On admission, we checked tumor lysis labs given her electrolyte abnormalities, acidosis and extensive lymphadenopathy w/ c/f lymphoma and she had Uric acid of 14.6, Phos of 6.9, and rising potassium now 5.3 after correction. She also had anemia with Hgb of 7.6. For which she received 2u of pRBCs. Unfortunately [facility] does not carry rabsuricase on formulary and given her tumor lysis syndrome, on discussion with oncology and nephrology that were both consulted, we ultimately decided to transfer her to [place] where she has been accepted to the ICU. In the meantime, she is on D51/2NS with bicarb and will have that running enroute. DISCHARGE MEDICATIONS: Please see below. ALLERGIES: Please see below. PHYSICAL EXAMINATION ON DISCHARGE: VITAL SIGNS: Please see below. GENERAL APPEARANCE: Ill appearing, NAD. HEENT: NCAT, EOMI, MMM. NECK: I did not appreciate nestor lymphadenopathy in the supraclavicular nodes, submandibular or submental nodes CARDIOVASCULAR: RRR, systolic murmur LUNGS: CTAB, no wheezing or rales, breathing comfortably on room air ABDOMEN: tender throughout but most tender in RUQ and RLQ with hepatomegaly. No rebound or involuntary guarding EXTREMITIES: WWP, no LE edema, NEUROLOGICAL: CN3-12 intact, clear speech, grossly nonfocal PSYCHIATRIC: AOx3 LABORATORY DATA: Please see below. IMAGIN/19 CT chest w/o contrast: Thyroid: Enlarged right lobe of the thyroid gland with a complex nodule measuring 2.6 x 1.8 cm. Further evaluation with nonemergent ultrasound could be considered. Lungs: Mild parenchymal scarring lingular lobe. Lungs otherwise clear. Pleural spaces: Unremarkable. No pneumothorax. No pleural effusion. Heart: There is moderate atherosclerotic calcification of the coronary arteries. Aorta: There is mild atherosclerosis in the thoracic aorta. Lymph nodes: Unremarkable. No enlarged lymph nodes. Liver: Hepatomegaly with a heterogeneous texture in the liver, findings which may indicate heterogeneous fatty infiltration or infiltrative metastatic disease. Hepatomegaly. Adrenal glands: Left adrenal hyperplasia. Intraperitoneal space: Ascites. Bones/joints: The spine demonstrates mild degenerative changes. Soft tissues: Unremarkable. IMPRESSION: 1. Enlarged right lobe of the thyroid gland with a complex nodule measuring 2.6 x 1.8 cm. Further evaluation with nonemergent ultrasound could be considered. 2. No acute intrathoracic findings. COMMENTS: Consistent with the [employer]'s Incidental Findings Committee white paper (J Am Allan Radiol 2015): In patients aged 35 years and older with an incidental thyroid nodule equal to or greater than 1.[address], MRI or extrathyroidal US, further evaluation with dedicated thyroid US is recommended for patients with normal life expectancy and without comorbidities. For smaller nodules without suspicious features, no further evaluation or follow up is recommended. 04/08 CT A/P w/o contrast: Heart and lung bases: There is linear scarring in the inferior segment of the lingula and the anteromedial basal segment of the lower lobe of the left lung. There are no pleural effusions. The heart size is normal. There is no pericardial effusion. There is calcific vascular disease of the thoracic aorta and coronary arteries. Liver: The liver has a lobulated margin, suggestive of cirrhosis. The hepatic parenchyma has a heterogeneous density which may indicate regenerating nodules however multifocal hepatocellular carcinoma or metastatic disease is not excluded. Gallbladder: There are multiple small gallstones. Spleen: Normal unenhanced appearance. Pancreas: Normal unenhanced appearance. Adrenal glands: There is thickening of the limbs of the adrenal glands consistent with hyperplasia. Kidneys/bladder: There is a 6 mm stone in the lower pole calyx of the right kidney. There is a 3 mm stone in the lower pole calyx of the right kidney. The urinary bladder has a normal unenhanced appearance. Pelvic structures: The uterus is surgically absent. The ovaries are not identified. There is free fluid in the pelvis. There is bilateral common internal and external iliac lymphadenopathy. There is no inguinal lymphadenopathy. GI tract: There are scattered colonic diverticuli without evidence of acute inflammation. The appendix is not demonstrated. Abdominal wall and mesentery: There is retrocrural, upper abdominal, retroperitoneal and mesenteric lymphadenopathy. There is fluid in the right perihepatic space and both pericolic gutters. There is thickening of the anterior and posterior pararenal fascia and the lateral conal fascia, bilaterally. Abdominal aorta and vascular structures: There is calcific vascular disease of the abdominal aorta. Bony structures: There is mild multilevel degenerative disc disease of the lower thoracic and lumbar spine. There are large Schmorl's nodes in the inferior endplate of T12 and the superior endplate of L5. The SI joints and hips are unre markable. IMPRESSION: 1. There is extensive intra and extra abdominal lymphadenopathy consistent with lymphoma. 2. There is moderate ascites. 3. The liver has a lobulated margin suggesting cirrhosis. There is heterogeneous density of the liver which may indicate regenerating nodules but primary carcinoma or metastatic disease cannot be excluded. 4. Cholelithiasis. 5. Other findings as noted. Abdominal US: The liver is enlarged, measuring 20.2 cm in vertical dimension in the midclav icular line and is coarsened in echotexture and has a lobulated margin. There is mild splenomegaly with the spleen measuring 12.8 cm in pole to pole length. The gallbladder is contracted and contains stones and sludge. The right kidney measures 11.3 x 5.1 x 4.8 cm. There is a benign cortical cyst in the interpolar region of the right kidney. There is an 8 mm stone in a lower pole calyx of the right kidney. The left kidney measures 12.0 x 4.9 x 4.6 cm. There is a benign cortical cyst in the interpolar region of the left kidney. Limited imaging of the pancreas is unremarkable. There is calcified plaque in the abdominal aorta. IMPRESSION: 1. Cholelithiasis with chronic cholecystitis. 2. Hepatomegaly with a lobulated margin suggesting cirrhosis. 3. Benign cortical cysts in both kidneys. 4. Nonobstructing stone in the right kidney. 5. Calcific vascular disease of the abdominal aorta. 04/08 CXR: There are surgical clips within the lingula consistent with biopsy. The lungs are otherwise clear. There are no pleural effusions. The heart size is normal. There is no calcific vascular disease of the thoracic aorta. The upper abdominal bowel gas pattern is normal. There is calcific vascular disease of the left carotid bifurcation. There are no significant bony abnormalities. IMPRESSION: 1. No evidence of acute cardiopulmonary pathology. 2. Other findings as noted. PROGNOSIS: Fair ACTIVITY: As tolerated DIET: renal diet, consistent carb DISCHARGE PLAN: Transfer to [place] DISPOSITION: Transfer to [place] ITEMS TO FOLLOWUP ON ON OUTPATIENT: Being transferred to [place] for tumor lysis syndrome with renal failure and bulky abdominal lymphadenopathy and pending heme/oncology workup. DISCHARGE CONDITION: Stable TIME SPENT ON DISCHARGE: 44 minutes. Vital Signs/I&Os Vital Signs Date Time Temp Pulse Resp B/P (MAP) Pulse Ox O2 Delivery O2 Flow Rate FiO2 04/09/21 15:44 97.0 82 20 112/56 99 Room Air I&O- Last 24 Hours up to 6 AM 04/09/21 06:00 Intake Total 2190 ml Output Total 450 ml Balance 1740 ml Laboratory Data Labs 24H Laboratory Tests 2 04/08/21 20:17: Lactic Acid Followup at 4 Hours 4.3*H 04/08/21 20:18: Anion Gap 19H, Glomerular Filtration Rate 9.1L, Calcium Level 9.9, Procalcitonin 78.05 04/08/21 22:20: Bedside Glucose (Misc Panel) 178H 04/09/21 03:16: Anion Gap 16, Glomerular Filtration Rate 10.6L, Calcium Level 8.2#L, Nucleated Red Blood Cells % (auto) 0.0, Magnesium Level 1.4L, Total Bilirubin 1.0, Aspartate Amino Transf (AST/SGOT) 74H, Alanine Aminotransferase (ALT/SGPT) 21, Alkaline Phosphatase 820H, Total Protein 5.4#L, Albumin 2.2#L, Albumin/Globulin Ratio 0.7L 04/09/21 08:26: Reticulocyte # (auto) 41.5, Percent Reticulocyte Count 1.0, Reticulocyte Hemoglobin Equivalent 26.5, Lactic Acid Level 2.0, Uric Acid 14.6H, Phosphorus Level 6.9H, Iron Level 16L, Total Iron Binding Capacity 250, Transferrin % Saturation 6.4L, Ferritin 99, Vitamin B12 Level 362, Folate 21.4 04/09/21 11:53: Bedside Glucose (Misc Panel) 107 04/09/21 14:02: Whole Blood Ionized Calcium 5.0 04/09/21 14:03: Phosphorus Level 6.2H, Anion Gap 17H, Glomerular Filtration Rate 8.5L, Calcium Level 9.6#, Albumin 2.6L 04/09/21 17:37: Bedside Glucose (Misc Panel) 117H CBC/BMP Laboratory Tests 04/08/21 20:18 04/08/21 22:39 04/09/21 03:16 04/09/21 14:03 FSBS Laboratory Tests Test 04/08/21 22:20 04/09/21 11:53 04/09/21 17:37 Range/Units Bedside Glucose (Misc Panel) 178 107 117 83-110 MG/DL Microbiology Microbiology 04/08/21 Blood Culture - Preliminary, Resulted No growth after 24 hours . All specim... 04/08/21 Gastrointestinal Tract Panel (PCR) - Final, Complete 04/08/21 Blood Culture - Preliminary, Resulted No growth after 24 hours . All specim... 04/08/21 Urine Culture, Received Pending Discharge Medications Scheduled Allopurinol (Allopurinol) 100 Mg Tablet, 200 MG PO Q8H Aspirin (Aspirin) 81 Mg Tab.chew, 81 MG PO QHS, (Reported) Atorvastatin Calcium (Atorvastatin Calcium) 80 Mg Tablet, 80 MG PO QHS, (Reported) Ferrous Sulfate (Slow Fe) 142 Mg Tablet.er, 142 MG PO Q2D, (Reported) Insulin Glargine,Hum.rec.anlog (Lantus Solostar) 100 Unit/1 Ml Insuln.pen, 60 UNITS SC QHS, (Reported) Levetiracetam (Levetiracetam ER) 500 Mg Tab.er.24h, 500 MG PO BID, (Reported) Metoprolol Succinate (Metoprolol Succinate) 50 Mg Tab.er.24h, 50 MG PO DAILY, (Reported) Omeprazole (Omeprazole) 20 Mg Capsule.dr, 20 MG PO DAILY, (Reported) Allergies Coded Allergies: No Known Allergies (Unverified , 04/08/21) JOSEPHINE DANIEL MD Apr 09, 2021 19:41
[2021-04-09] MEDS: ASPIRIN 81 MG CHEW TABLET PO SCH (20:07)
[2021-04-09] MEDS: LEVEMIR (INSULIN DETEMIR) 1 UNITS/0.01ML SC SCH (20:10)
[2021-04-09 20:16] LABS: ALBUMIN 2.5 GM/DL (3.2-5.2); CALCIUM LEVEL 9.3 MG/DL (8.8-10.2); CREATININE FOR GFR 5.05 MG/DL (0.55-1.30); PHOSPHORUS LEVEL 6.2 MG/DL (2.5-4.9); POTASSIUM SERUM 5.6 MEQ/L (3.5-5.1)
[2021-04-09] MEDS ORDERED: SLF 3 ML SYR IV SCH (22:00)
--- NOTE | 2021-04-10 04:37 | CR ---
CONSULTATION DATE: 04/09/2021 REQUESTING PHYSICIAN: Dr. Marline Shaw CONSULTING PHYSICIAN: Dr Bernardo Mosqueda REASON FOR CONSULT: Acute Renal Failure and Electrolyte Abnormalities. CHIEF COMPLAINT: The patient presented to the hospital overnight with generalized abdominal pain. HISTORY OF PRESENT ILLNESS: Abby Quinn is a 71-year-old female with a past medical history of pericarditis, bladder cancer in the past, baseline renal function is unknown. She presented to the hospital with generalized abdominal pain and distension and discomfort for the last three weeks almost. She was also having loose stools and diarrhea for almost the same amount of time and she was having 8 to 10 bowel movements a day. When the patient was evaluated in the emergency room, she was found to have extensive intraabdominal lymphadenopathy concerning for metastatic disease with possible metastasis to liver. She was found to have acute renal failure on arrival. Her creatinine was 5.2 with a potassium of 6.8. She was admitted under the hospitalist service with acute renal failure, hyperkalemia, metabolic acidosis and possible intraabdominal malignancy. Nephrology service was called for further help in the management of this patient. I saw and evaluated the patient today morning at the bedside. She was still in significant distress. She was getting aggressive IV fluid hydration. Lactic acid level was elevated on arrival. The patient has an indwelling Nascimento catheter and she was still oliguric by the time I saw her. I immediately ordered her Tumor Lysis Syndrome labs, which are discussed below. PAST MEDICAL HISTORY: Hypertension, hyperlipidemia, insulin dependent diabetic and depression and history of bladder cancer in the past. PAST SURGICAL HISTORY: Status post pericardial window, status post cystoscopy with transurethral resection of bladder tumor and status post hysterectomy in the past. ALLERGIES: No known drug allergies.. FAMILY HISTORY: No significant family history of end-stage renal disease. There is positive history of a cancer in her mother. SOCIAL HISTORY: The patient is an active smoker. She smokes half a pack per day since the time she was 17 years old. She denies any illicit drug abuse and she lives with her . REVIEW OF SYSTEMS: The patient reports felling very weak and tired and fatigued. Eyes: Denies any blurry vision, double vision. ENT: Denies any dysphagia, odynophagia. Denies any chest pains, palpitations. Respiratory: Denies any shortness of breath. Gastrointestinal (GI): Reports abdominal pain, generalized with diarrhea. Genitourinary () : Reports decreased urinary output. Musculoskeletal: Reports muscle aches and pains. Skin: Denies any rashes or ulcers. Hematological/oncological: Denies any easy bleeding or bruising. Psychiatric: Denies any depression or anxiety. Endocrine: Reports history of diabetes. All other review of systems is negative. PHYSICAL EXAMINATION: General: The patient is awake, alert, oriented x3, but moderate painful distress. Vital signs: Temperature 97.1 degrees Fahrenheit, blood pressure 115/58, pulse is 82, respiratory rate of 20, saturating 98% on room air. Head and neck examination: Extraocular muscles are intact. Pupils equally round and reactive to light. Mucous membranes are moist. Neck is supple. There is no jugular venous distention (JVD). Cardiovascular: S1, S2 regular rate. Tachycardia was noted last night. No edema of the bilateral lower extremities. Respiratory: Chest is clear to auscultation bilaterally. Bilateral equal air entry. No rales or rhonchi. Abdomen is distended. The patient has generalized abdominal distension on deep palpation. No ascites is noted. Genitourinary (): She has an indwelling Nascimento catheter. Musculoskeletal: No clubbing or cyanosis. Pulses are 2+. ART PROFESSOR: No focal deficit. However, the patient is unable to get up and walk around because of her weakness and generalized muscle aches and pain and abdominal pain. LABORATORY DATA: Complete blood count (CBC) showed a WBC of 14 on arrival, 12.1 today, hemoglobin is 7.9, platelets are 298, INR is 2.29. Urinalysis done showed 3+ protein, 2+ blood, too numerous to count WBCs. Arterial blood gas: pH was 7.24 yesterday. Basic metabolic panel (BMP) on arrival showed sodium 129, potassium 6.8, chloride 99, bicarbonate 14, anion gap 16, BUN 66, creatinine 5.2. Lactic acid on arrival was 2.5. Fasting glucose 221. Total bilirubin 1.2. Direct bilirubin 1. AST 94, ALT 27, alkaline phosphatase 967. Phosphorus level was 6.9. Uric acid level was 14.6. COVID 19 is negative. MICROBIOLOGY: Gastrointestinal (GI) panel is negative. Blood culture preliminary is negative. IMAGING DATA: A thyroid ultrasound was done, which showed multiple cystic and solid nodules. The dominant nodule in the right lobe pole is mildly suspicious. CT of the chest was done, which showed an enlarged right lobe of the thyroid with a complex nodule. No acute intrathoracic findings. CAT scan of the abdomen and pelvis was done, which showed extensive intra and extra abdominal lymphadenopathy consistent with possible lymphoma. Moderato amount of ascites. Liver is lobulated, suggesting cirrhosis and heterogeneous density of the liver, which may indicate carcinoma versus metastatic disease and there was cholelithiasis. HOME MEDICATIONS: The patient's medications include Trulicity 3 mg once a week, Estradial, Lasix 40 mg by mouth daily, glimepiride 1 mg by mouth daily, losartan 20 mg by mouth daily, metformin 1000 mg twice a day, mycophenolate 500 mg by mouth twice a day, aspirin 81 mg by mouth daily, atorvastatin 80 mg every night at bedtime, iron tablet, insulin glargine 60 units subcutaneous every night at bedtime, Keppra 500 mg by mouth twice a day, metoprolol succinate 50 mg by mouth daily and omeprazole 20 mg by mouth daily. CURRENT INPATIENT MEDICATIONS: The patient's medications were all reviewed by myself. She was given normal saline bolus. She was getting Zosyn 2.25 gm IV q 6 hours. She was given a dose mag sulfate 1 gm IV times one dose. I started the patient on IV bicarbonate containing drips. She is on Tylenol. I have started the patient on allopurinol 200 mg by mouth q 8 hours, aspirin 81 mg by mouth every night at bedtime. I stopped the Lipitor at this time. She was on Lovenox 40 mg subcutaneous daily, which I stopped and later on she was started on heparin 5000 units 12 hours, insulin Levemir 60 units subcutaneous every night at bedtime, Keppra extended release 500 mg by mouth twice a day, metoprolol XL 50 mg by mouth daily was initially started, later on it was stopped, omeprazole 20 mg by mouth daily. ASSESSMENT AND PLAN: 1. Tumor Lysis Syndrome. The patient has hyperkalemia, hyperphosphatemia, hyperuricemia and initially she presented with hypercalcemia as well. She has evidence of extensive intraabdominal lymphadenopathy, highly suspicious for malignancy. She was given normal saline boluses initially and now because of high anion gap metabolic acidosis, I have started the patient on bicarbonate containing fluids to alkalinize her urine. She is currently oliguric. If renal function does not start improving, the patient probably will need to be start on CVVHDF. 2. High anion gap metabolic acidosis, it is secondary to acute renal failure and lactic acidosis. The patient is being started on bicarbonate containing fluids, which hopefully should improve the acidosis; otherwise if we have to start the patient on dialysis, that would improve metabolic acidosis. 3. Hyperkalemia. It is secondary to renal failure and Tumor Lysis Syndrome. The patient got a dose of IV calcium. Continue bicarbonate containing fluids. Will give Kayexalate only if potassium is more than 5.5. Since the patient was having diarrhea, I would avoid Kayexalate. 4. Hyponatremia. The patient had hypovolemic hyponatremia on arrival. Sodium level is improving with IV fluid hydration. 5. Anemia. It is most likely secondary to malignancy. The patient has iron deficiency as well. Two units of packed red blood cells (PRBC) transfusion has been given in the hospital so far. 6. History of hypertension. Avoid use of SARA inhibitors or angiotensin receptor blockers at this time because of acute renal failure. Metoprolol has also been stopped because of soft blood pressures. 7. Hyperuricemia. This is secondary to Tumor Lysis Syndrome. We do not have rasburicase available in the hospital. I have started the patient on allopurinol 200 mg by mouth q 8 hours. 8. Lactic acidosis. The patient's cultures are negative so far. Empiric antibiotics have been started with Zosyn 2.25 gm IV q 6 hours. Aggressive IV fluid hydration is also being given. 9. Possible intraabdominal malignancy. The patient likely has lymphoma, which is metastatic, which is causing Tumor Lysis Syndrome. The patient is going to be transferred to [facility] [place]. 10.Diabetes mellitus type 2, insulin dependent. Okay to continue insulin at this time. Avoid the use of metformin at this time with acute renal failure and Tumor Lysis Syndrome. The case was discussed with the medical team and I advised to arrange rasburicase or transfer the patient to a cancer center where rasburicase and further cancer treatment would be available. Total critical care time spent in the management of this patient today morning in the progressive care unit, excluding all the procedures, was 2 hours. Thank you for involving me in the care of this patient. If the patient is still here by tomorrow morning, then I shall follow the patient along with you. KEANU
== END 2021-04-09 23:13 | disposition short-term general hospital (02) | DRG 840 ==
LOC: M ED 12:30 → M ED INP 18:48 → M PCU 21:42
PROVIDERS: ADMIT Internal Medicine; ATTEND Internal Medicine
DX: C85.90 Non-Hodgkin lymphoma, unspecified, unspecified site (principal); E88.3 Tumor lysis syndrome; N17.9 Acute kidney failure, unspecified; E87.1 Hypo-osmolality and hyponatremia; C78.7 Secondary malignant neoplasm of liver and intrahepatic bile duct; R45.851 Suicidal ideations; K80.12 Calculus of gallbladder with acute and chronic cholecystitis without obstruction; I50.32 Chronic diastolic (congestive) heart failure; I11.0 Hypertensive heart disease with heart failure; E78.5 Hyperlipidemia, unspecified; E11.9 Type 2 diabetes mellitus without complications; F32.9 Major depressive disorder, single episode, unspecified; F17.210 Nicotine dependence, cigarettes, uncomplicated; E87.5 Hyperkalemia; Z90.79 Acquired absence of other genital organ(s); Z85.51 Personal history of malignant neoplasm of bladder; R74.01 Elevation of levels of liver transaminase levels; Z79.82 Long term (current) use of aspirin; Z79.899 Other long term (current) drug therapy; Z79.84 Long term (current) use of oral hypoglycemic drugs; E83.42 Hypomagnesemia; E79.0 Hyperuricemia without signs of inflammatory arthritis and tophaceous disease; E83.39 Other disorders of phosphorus metabolism; E83.52 Hypercalcemia